=== PATIENT | female | born 1950 | race African-American/Black ===

== ENCOUNTER 2019-06-17 11:26 | Inpatient (IN) | payer MEDICARE, MEDICAID ==
[~2019-06-17] VITALS: Ht 157.5 cm; Wt 73.9 kg
[~2019-06-17 11:26] MED LIST: ALBU18HF2 IH; ASPI-1393 PO; ATOR10TA PO; BUPR100T6 PO; CARI350T27 PO; ESCI20TA PO; NIFE60TA64 PO; OXYC-105 PO; TRAZ150T78 PO
[2019-06-17] MEDS ORDERED: LACTATED RINGERS 1,000 ML IV SCH (12:00)
[2019-06-17] MEDS ORDERED: BUPIVACAINE/EPINEPH/PF 0.25%/0.0005 10ML ONE ×3 (14:48→20:19)
[2019-06-17] MEDS ORDERED: GENTAMICIN SULF 40MG/ML 2ML VIAL ONE ×3 (14:49→20:03)
[2019-06-17] MEDS ORDERED: EPINEPHRINE 1:1000 1 MG/ML AMP ONE (14:49)
[2019-06-17] MEDS ORDERED: MORPHINE SULFATE/PF 1MG/ML 10ML AMP ONE (14:49)
[2019-06-17] MEDS ORDERED: BACITRACIN 50,000 UNITS/VIAL ONE (14:50)
[2019-06-17 14:53] LABS: CLARITY URINE CLEAR (CLEAR); COLOR URINE YELLOW (YELLOW); KETONES URINE NEGATIVE (NEGATIVE); LEUKOCYTE ESTERASE URINE 2+ (NEGATIVE); NITRITE URINE NEGATIVE (NEGATIVE); OCCULT BLOOD URINE NEGATIVE (NEGATIVE); PH URINE 5.5 (4.5-8.0); PROTEIN URINE NEGATIVE (NEGATIVE); SPECIFIC GRAVITY URINE 1.022 (1.005-1.030); UROBILINOGEN URINE 0.2 E.U./dL (0.2-1.0)
[2019-06-17] MEDS ORDERED: TRANEXAMIC ACID 1,000 MG in SODIUM CHLORIDE 0.9% 100 ML IV NR (15:30)
[2019-06-17 16:49] LABS: CLARITY URINE CLEAR (CLEAR); COLOR URINE YELLOW (YELLOW); KETONES URINE NEGATIVE (NEGATIVE); LEUKOCYTE ESTERASE URINE NEGATIVE (NEGATIVE); NITRITE URINE NEGATIVE (NEGATIVE); OCCULT BLOOD URINE NEGATIVE (NEGATIVE); PROTEIN URINE NEGATIVE (NEGATIVE); SPECIFIC GRAVITY URINE 1.006 (1.005-1.030); UROBILINOGEN URINE 0.2 E.U./dL (0.2-1.0)
[2019-06-17] MEDS ORDERED: PROPOFOL 200MG/20ML VIAL IV ONE (17:12)
[2019-06-17] MEDS ORDERED: METOCLOPRAMIDE HCL 10MG/2ML VIAL ONE (17:12)
[2019-06-17] MEDS ORDERED: GLYCOPYRROLATE 0.2 MG/ML 2ML VIAL ONE ×2 (17:12→20:30)
[2019-06-17] MEDS ORDERED: ROCURONIUM BROMIDE 10MG/ML VIAL 5ML IV ONE ×3 (17:12→20:24)
[2019-06-17] MEDS ORDERED: ONDANSETRON HCL 4MG/2ML INJ ONE (17:12)
[2019-06-17] MEDS ORDERED: CEFAZOLIN SODIUM 1000MG/VIAL ONE (17:12)
[2019-06-17] MEDS ORDERED: DEXAMETHASONE 4MG/ML 1ML VIAL ONE ×2 (17:12→19:00)
[2019-06-17] MEDS ORDERED: SODIUM CHLORIDE 0.9% 10ML VIAL ONE (17:12)
[2019-06-17] MEDS ORDERED: FENTANYL CITRATE/PF 50MCG/ML 2ML VIAL ONE ×3 (17:12→18:49)
[2019-06-17] MEDS ORDERED: NEOSTIGMINE METHYLSULFATE 1MG/ML 10 ML VIAL ONE (17:12)
[2019-06-17] MEDS ORDERED: SUCCINYLCHOLINE CHLORIDE 200MG/10ML IV ONE (17:12)
[2019-06-17] MEDS ORDERED: PHENYLEPHRINE HCL 10 MG/ML 1ML (IV VIAL) IV ONE (17:12)
[2019-06-17] MEDS ORDERED: EPHEDRINE SULFATE 50MG/ML VIAL ONE (17:12)
[2019-06-17] MEDS ORDERED: MIDAZOLAM HCL 2 MG/2 ML VIAL ONE (17:12)
[2019-06-17] MEDS ORDERED: ROPIVACAINE HCL 10MG/ML 20 ML VIAL EPI ONE (17:18)
[2019-06-17] MEDS ORDERED: ACETAMINOPHEN 325MG TABLET PO PRN (17:45)
[2019-06-17] MEDS ORDERED: MAGNESIUM HYDROXIDE 400MG/5ML 30ML UDC PO PRN (17:45)
[2019-06-17] MEDS ORDERED: ONDANSETRON HCL 4MG/2ML INJ IV PRN ×2 (17:45→22:30)
[2019-06-17] MEDS ORDERED: ZOLPIDEM TARTRATE 5MG TABLET PO PRN (17:45)
[2019-06-17] MEDS ORDERED: VANCOMYCIN HCL 1 GM/VIAL ONE (21:11)
[2019-06-17] MEDS ORDERED: MEPERIDINE HCL/PF 25MG/ML CPJ IV PRN ×2 (22:30)
[2019-06-17] MEDS ORDERED: HYDROMORPHONE HCL/PF 2MG/ML CPJ IV PRN (22:30)
[2019-06-17] MEDS ORDERED: MORPHINE SULFATE 2 MG/ML CPJ (NOT FOR IM USE) IV PRN (22:30)
[2019-06-17] MEDS ORDERED: DIPHENHYDRAMINE INJ IV PRN (23:45)
[2019-06-17] MEDS ORDERED: NALOXONE INJ IV PRN (23:45)
[2019-06-17] MEDS ORDERED: ONDANSETRON INJ IV PRN (23:45)
[2019-06-17] MEDS ORDERED: HYDROMORPHONE PCA 50 ML IV ONE (23:59)
[2019-06-18] VITALS (7 sets, daily range): BP systolic 118–156; BP diastolic 61–78
[2019-06-18] MEDS ORDERED: SODIUM CHLORIDE 0.9% 1,000 ML IV ONE
[2019-06-18] MEDS ORDERED: HYDROMORPHONE PCA 10MG/50ML IV PRN (00:15)
[2019-06-18] MEDS: CEFAZOLIN 1000MG PREMIX 50 ML IV SCH ×3 (02:20→17:05)
[2019-06-18] MEDS: DOCUSATE SODIUM 100MG CAPSULE PO SCH ×2 (09:05→16:53)
[2019-06-18] MEDS: ASPIRIN 325MG EC TABLET PO SCH (09:06)
[2019-06-18 10:23] LABS: HEMATOCRIT. 31.3 % (36.0-48.0); HEMOGLOBIN. 10.3 g/dL (12.0-16.0); MEAN CORPUSCULAR HEMOGLOBIN 29.1 pg (28.0-32.0); MEAN CORPUSCULAR VOLUME 88.4 fL (81.0-99.0); MEAN PLATELET VOLUME 8.6 fl (7.4-10.4); PLATELET 223 x1000/uL (130-400); RED BLOOD CELL COUNT 3.54 mill/uL (4.2-5.4); RED CELL DISTRIBUTION WIDTH 13.5 % (11.6-14.6)
[2019-06-18 10:32] LABS: CHLORIDE 108 mEq/L (98-107)
[2019-06-18 13:05] LABS: PLATELET ESTIMATE NORMAL
[2019-06-18] MEDS ORDERED: DEXTROSE 50% WATER 50ML SYRINGE IV PRN (16:45)
[2019-06-18] MEDS: BLOOD SUGAR DIAGNOSTIC STRIP TEST SCH ×2 (17:24→21:33)
[2019-06-18] MEDS: INSULIN LISPRO 100 UNITS/ML SUBCUT SCH ×2 (17:24→21:00)
[2019-06-18] MEDS: HYDROCODONE/ACETAMINOPHEN 5/325MG TABLET PO PRN (21:24)
[2019-06-19] VITALS: BP 171/72
[2019-06-19] MEDS: CEFAZOLIN 1000MG PREMIX 50 ML IV SCH ×3 (02:00→17:25)
[2019-06-19 04:00] VITALS: BP 164/82
[2019-06-19] MEDS: BLOOD SUGAR DIAGNOSTIC STRIP TEST SCH ×3 (06:49→17:20)
[2019-06-19] MEDS: INSULIN LISPRO 100 UNITS/ML SUBCUT SCH ×3 (06:52→17:25)
[2019-06-19 07:42] LABS: BASOPHILS % 0.6 % (0.0-2.0); EOSINOPHILS % 0.9 % (0.0-5.0); HEMOGLOBIN. 10.1 g/dL (12.0-16.0); LYMPHOCYTES % 27.1 % (20.0-50.0); MEAN CORPUSCULAR VOLUME 89.1 fL (81.0-99.0); MEAN PLATELET VOLUME 8.7 fl (7.4-10.4); MONOCYTES % 11.2 % (2.0-8.0); NEUTROPHILS % 60.2 % (40.0-76.0); PLATELET 192 x1000/uL (130-400); RED BLOOD CELL COUNT 3.48 mill/uL (4.2-5.4); RED CELL DISTRIBUTION WIDTH 13.8 % (11.6-14.6)
[2019-06-19 08:00] VITALS: BP 141/83
[2019-06-19 08:09] LABS: CHLORIDE 107 mEq/L (98-107)
[2019-06-19] MEDS: ASPIRIN 325MG EC TABLET PO SCH (09:10)
[2019-06-19] MEDS: DOCUSATE SODIUM 100MG CAPSULE PO SCH ×2 (09:10→17:25)
[2019-06-19 12:00] VITALS: BP 144/82
[2019-06-19] MEDS: HYDROCODONE/ACETAMINOPHEN 5/325MG TABLET PO PRN (14:56)
[2019-06-19 16:00] VITALS: BP 124/76
[2019-06-19 16:11] VITALS: BP 124/76
== END 2019-06-19 19:02 | disposition home or self-care (01) | DRG 483 ==
LOC: OR 11:26 → 6EST 23:40
PROVIDERS: ADMIT Orthopaedic Surgery; ATTEND Orthopaedic Surgery
PROC: 0RRJ0JZ Replacement of Right Shoulder Joint with Synthetic Substitute, Open Approach (ICD-10-PCS; principal; 2019-06-17)
DX: S42.201A Unspecified fracture of upper end of right humerus, initial encounter for closed fracture (principal); M19.111 Post-traumatic osteoarthritis, right shoulder; W01.0XXA Fall on same level from slipping, tripping and stumbling without subsequent striking against object, initial encounter; D64.9 Anemia, unspecified; D72.825 Bandemia; E78.5 Hyperlipidemia, unspecified; E83.51 Hypocalcemia; R73.9 Hyperglycemia, unspecified; F32.9 Major depressive disorder, single episode, unspecified; I10 Essential (primary) hypertension; J45.909 Unspecified asthma, uncomplicated; Z87.01 Personal history of pneumonia (recurrent); Z98.1 Arthrodesis status; Z79.82 Long term (current) use of aspirin; Y93.89 Activity, other specified; Y92.89 Other specified places as the place of occurrence of the external cause; Y99.8 Other external cause status
CPT/HCPCS: 36415; 73030; 80048; 81003; 82962; 83036; 86850; 86900; 88305; 88311; 97166; 97530; 97535; C1713; C1776; C1893; J0171; J0330; J0690; J1100; J1170; J1580; J2250; J2274; J2370; J2405; J2704; J2710; J2765; J2795; J3010; J3370; J3490; J7050